=== PATIENT | female | born 2005 | race Caucasian/White ===

== ENCOUNTER 2023-02-09 08:51 | Emergency (ER) | payer OTHER, SELFPAY ==
[2023-02-09 08:51] VITALS: BP 126/81; PULSE 85; RESP 18; TEMP 36.2; O2SAT 99; BMI 27.3
--- NOTE | 2023-02-09 09:27 | EDS_ITS ---
HPI History of Present Illness HPI Narrative: Presents with possible bat bite to her left calf that occurred a couple days ago. Patient does not remember getting bit. Patient states she noted a bite melany to her left calf. Patient states she is a student at [employer] and there have been bats in the area. Patient admits to some mild pain over her left calf. Patient denies any redness or swelling. Patient denies any fevers or chills. Patient states she has never been vaccinated against rabies in the past. Chief Complaint: Bite Informant: patient Occured/Mechanism Comment: Bat bite Onset/Context/Timing Onset: Days (2) Context: Sudden Onset Timing: Continuous Quality of Pain: Dull Location: Left calf Worsened by: Nothing Relieved by: Nothing Associated Symptoms Associated Symptoms: Negative for Parasthesia, Weakness or Loss of Funtion Narrative Tetanus Immunization: 5-10 years [facility] Medical History (Updated 02/09/23 @ 09:[address] Igor Cuellar DO) Anxiety and depression Allergy/AdvReac Type Severity Reaction Status Date / Time No Known Allergies Allergy Verified 02/09/23 08:54 Surgical History no surgical history no surgical history Social History Smoking Status: Never smoker ROS ROS ED Constitutional Constitutional ED: Reports chills and subjective; Denies fever(s) Eyes Eyes: Denies blurry vision or change in vision ENT ENT ED: Denies rhinorrhea or sore throat Cardiovascular Cardiovascular: Denies chest pain or palpitations Respiratory/Chest Respiratory/Chest: Denies cough or dyspnea Gastrointestinal Gastrointestinal: Reports nausea and vomiting Genitourinary Genitourinary ED: Denies dysuria or hematuria Musculoskeletal Musculoskeletal: Reports neck pain; Denies back pain Integumentary Denies abscess or rash Neurologic Neurologic: Denies headache(s) or weakness Allergic/Immunologic Allergic/Immunologic ED: Denies mouth swelling or urticaria EXAM Physical Exam Const Vital Signs: 02/09/23 08:51 Temperature 97.2 F L Temperature Source Temporal Pulse Rate 85 Respiratory Rate 18 Blood Pressure 126/81 H Blood Pressure Mean 96 Pulse Ox 99 Oxygen Delivery Method Room Air Positive well nourished and well developed General Appearance ED: well developed and NAD HEENT Reports moist mucous membranes Neck full ROM and supple Resp normal respiratory effort and clear to auscultation bilaterally Cardio regular rate and regular rhythm GI non-tender and non-distended Palpation: soft Extremity Extremity Narrative: Is a small puncture wound noted over the posterior lateral aspect of the left calf. There is no surrounding erythema or warmth noted. There is no bleeding noted. There is minimal tenderness. There is full range of motion of the lower extremities. Pedal pulses are equal bilaterally. Sensation was intact to light touch bilaterally in the lower extremities. Strength is 5/5 bilaterally in the lower extremities. Neuro oriented x3, CN's II-XII intact bilaterally, moves all extremities and no sensory deficits noted Sensorium / Orientation: alert Motor Exam: strength 5/5 throughout Psych mental status grossly normal MDM MDM MDM Narrative Medical decision making narrative: Since there is a potential for a bat bite, rabies immunoglobulin and rabies vaccine were recommended. Patient is agreeable with this. Rabies immunoglobulin was infiltrated at the site of the bite. Initial rabies vaccine was administered. Patient was instructed to return in 3, 7, and 14 days for repeat vaccines. Patient was instructed to keep the wound clean and dry. Patient was instructed to follow-up with her primary care physician in 5 to 7 days. Patient was instructed return if worse in any way. Patient understood and was agreeable with the plan. All questions were answered. Discharge Plan Triage Chief Complaint: Bite ED Provider: Igor Cuellar Dx/Rx/DC Orders Clinical Impression: Bat bite wound Instructions: ED Animal Bite (General) Primary Care Provider: Sally Campos NP Referrals: NOT,DEFINED [Non-Staff] - Sally Campos NP [Other] - 1-2 Weeks Activity Restrictions/Additional Instructions: Return to the emergency department in 3, 7, and 14 days for repeat rabies vaccines Disposition Disposition: Home, Self Care
[2023-02-09] MEDS: Ondansetron ODT 4 MG Tablet PO (10:25)
[2023-02-09] MEDS: Rabies Immune Globulin/PF 300 UNIT/ML, 5 ML VIAL 1310 UNIT IM (11:03)
[2023-02-09] MEDS: Rabies Vaccine,Human Diploid 2.5 UNITS Vial IM (11:05)
== END 2023-02-09 11:23 | disposition home or self-care (01) ==
PROVIDERS: Emergency Provider Emergency Medicine; Visit Provider Emergency Medicine
DX: S81.852A Open bite, left lower leg, initial encounter (principal); W55.81XA Bitten by other mammals, initial encounter; Z23 Encounter for immunization
CPT/HCPCS: 90675; 96372; 99283; 90375

== ENCOUNTER 2023-02-12 12:23 | Outpatient (CLI) | payer OTHER, SELFPAY ==
[2023-02-12 13:06] VITALS: BP 120/73; PULSE 81; RESP 18; TEMP 35.8; O2SAT 98
[2023-02-12] MEDS: Rabies Vaccine,Human Diploid 2.5 UNITS Vial IM (13:08)
== END 2023-02-12 14:03 | disposition home or self-care (01) ==
PROVIDERS: Visit Provider Emergency Medicine
DX: Z23 Encounter for immunization (principal)
CPT/HCPCS: 90675; 96372

== ENCOUNTER 2023-02-16 15:15 | Outpatient (CLI) | payer OTHER, SELFPAY ==
[2023-02-16] MEDS: Rabies Vaccine,Human Diploid 2.5 UNITS Vial IM (15:59)
[2023-02-16 16:20] VITALS: BP 117/51; PULSE 90; RESP 16; TEMP 36.3; O2SAT 100; BMI 26.4
== END 2023-02-16 16:59 | disposition home or self-care (01) ==
DX: Z23 Encounter for immunization (principal)
CPT/HCPCS: 90675; 96372

== ENCOUNTER 2023-02-23 15:35 | Outpatient (CLI) | payer OTHER, SELFPAY ==
[2023-02-23] MEDS: Rabies Vaccine,Human Diploid 2.5 UNITS Vial IM (16:54)
[2023-02-23 17:07] VITALS: BP 118/76; PULSE 64; RESP 14; TEMP 36.4; O2SAT 100; BMI 27.5
== END 2023-02-23 17:29 | disposition left against medical advice (07) ==
DX: Z23 Encounter for immunization (principal)
CPT/HCPCS: 90675; 96372